=== PATIENT | female | born 1935 | race Caucasian/White ===

== ENCOUNTER 2017-07-19 08:49 | Emergency (ER) | payer MEDICARE, OTHER ==
[2017-07-19] MEDS ORDERED: ALTEPLASE 100 MG in EMPTY BAG 1 BAG IV STA (09:03)
--- NOTE | 2017-07-19 09:22 | ED ---
General Adult HPI - General Stated complaint: Cardiac Arrest Time Seen by Provider: 07/19/17 09:16 - History of Present Illness Initial comments: 81-year-old female presents in cardiopulmonary arrest. History is obtained from EMS. According to EMS initial call was for difficulty breathing. Upon arrival patient was in respiratory arrest, this progressed to cardiac arrest in PE a. CPR was initiated according to ACLS protocol. Patient did have a brief moment of return of spontaneous circulation, which progressed again to PDA. Patient was given a total of 3 rounds of epinephrine and 1 dose of atropine by EMS prior to arrival. She was intubated with a Eugenio airway. Chief complaint over the previous 24 hours according to the patient's was nausea vomiting. No known previous medical history or current medications. - Related Data Home Medications Medication Instructions Recorded Confirmed No Known Home Medications [No 07/19/17 07/19/17 Known Home Medications] Allergies Allergy/AdvReac Type Severity Reaction Status Date / Time No Known Allergies Allergy Verified 03/08/16 14:12 Review of Systems ROS Statement: Those systems with pertinent positive or pertinent negative responses have been documented in the HPI. ROS Other: All systems not noted in ROS Statement are negative. Past Medical History Past Medical History: No Reported History History of Any Multi-Drug Resistant Organisms: None Reported Past Surgical History: No Surgical Hx Reported Past Psychological History: No Psychological Hx Reported Smoking Status: Never smoker Past Alcohol Use History: None Reported Past Drug Use History: None Reported General Exam - General Exam Comments Initial Comments: 81-year-old obese female, pupils are initially 3 mm and nonreactiv, patient is plethoric, with venous engorgement in the facial and neck veins. No spontaneous respirations. Bilateral breath sounds with BVM. Abdomen is distended nonrigid. Bilateral femoral pulses felt with chest compressions. Skin exam is pale, modeled. Medical Decision Making - Medical Decision Making 81-year-old female presents in cardiopulmonary arrest, rhythm of PE a. Patient was intubated prior to arrival. Approximately 15 minutes downtime prior to arrival with continuous CPR. Patient arrived in the emergency department at 0848. CPR was continued by ACLS protocol. Additional 5 doses of epinephrine, 1 dose of bicarbonate and 1 dose calcium were given, total of 8 doses of epinephrine given. Patient remained in PA, progressed to asystole. Time of was called, exam at that time, pupils are 7 mm and fixed bilaterally. No spontaneous respirations, no heart sounds auscultated, no peripheral pulse. Time of 12 Critical Care Time Critical Care Time: Yes Disposition Clinical Impression: Cardiopulmonary arrest Disposition: Condition: Undetermined Referrals: Trina Perez MD [Primary Care Provider] - 1-2 days Time of Disposition: 09:12 Preliminary Cause of : Cardio pulmonary arrest
[2017-07-19] MEDS ORDERED: CALCIUM CHLORIDE 100 MG/ML 10 ML SYRINGE ONE (12:08)
[2017-07-19] MEDS ORDERED: SODIUM BICARB 8.4% 50 ML SYR (1 MEQ/ML) ONE (12:08)
[2017-07-19] MEDS ORDERED: EPINEPHrine 10 ML SYRINGE (0.1 MG/ML) ONE (12:08)
== END 2017-07-19 10:23 | disposition expired ==
LOC: EC 08:49
DX: I46.9 Cardiac arrest, cause unspecified (principal)
CPT/HCPCS: 99285; 92950; J0171